=== PATIENT | male | born 1960 | race Two or more races ===

== ENCOUNTER 2017-04-22 18:53 | Inpatient (IN) | payer OTHER ==
[2017-04-22] MEDS ORDERED: MAGNESIUM HYDROXIDE 30ML CUP PO (19:30)
[2017-04-22] MEDS ORDERED: LACTULOSE 30ML CUP PO (19:30)
[2017-04-22] MEDS ORDERED: ACETAMINOPHEN 325 MG TAB PO (19:30)
[2017-04-22] MEDS ORDERED: PENDING SANTYL ORDER FOR WOUND CARE XX (19:30)
[2017-04-22] MEDS ORDERED: BISACODYL 10 MG SUPP PR (19:30)
[2017-04-22] MEDS ORDERED: DEXTROSE 50% 50 ML SYRINGE IV ×2 (20:30)
[2017-04-22] MEDS ORDERED: GLUCAGON 1 MG INJ IM (20:30)
[2017-04-22] MEDS ORDERED: GLUCOSE GEL 15 GRAM TUBE PO ×2 (20:30)
[2017-04-22] MEDS ORDERED: GLUCOSE GEL 15 GRAM TUBE BUCCAL (20:30)
[2017-04-22] MEDS: DOCUSATE SODIUM 100 MG CAP PO (21:00)
[2017-04-22] MEDS: SENNA TAB PO (21:00)
[2017-04-22] MEDS: Insulin NOVOLOG SS MILD Algorithm (SS with meals and bedtime) SC (21:00)
[2017-04-22] MEDS: ATORVASTATIN 80 MG TAB PO (21:14)
[2017-04-22] MEDS: TRIAMCINOLONE ACET 0.1% 15 GM CR TOP (22:00)
[2017-04-23] MEDS: DIAZEPAM 2 MG TAB PO ×2 (01:23→20:26)
[2017-04-23] MEDS: ACCUCHECK AT 2AM (Patients on SS coverage) XX (02:00)
[2017-04-23 02:31] LABS: ADD UMIC NO; UR ASCORBIC ACID NEGATIVE (NEGATIVE); UR BILIRUBIN (Dip) NEGATIVE (NEGATIVE); UR BLOOD (Dip) NEGATIVE (NEGATIVE); UR CLARITY CLEAR (CLEAR); UR COLOR YELLOW (YELLOW); UR GLUCOSE (Dip) NEGATIVE (NEGATIVE); UR KETONES (Dip) NEGATIVE (NEGATIVE); UR LEUKOCYTE ESTERASE (Dip) NEGATIVE Leu/ul (NEGATIVE); UR NITRITE (Dip) NEGATIVE (NEGATIVE); UR SPECIFIC GRAVITY (Dip) 1.023 (1.003-1.030); UR TOTAL PROTEIN (Dip) NEGATIVE (NEGATIVE); UR UROBILINOGEN (Dip) NEGATIVE (NEGATIVE)
[2017-04-23 07:20] LABS: ADD MAN DIFF? NO
[2017-04-23 07:27] LABS: BASOPHILS % 0.3 % (0.0-2.0); EOSINOPHILS # 0.2 10^3/ul (0.0-0.5); EOSINOPHILS % 2.3 % (0.0-7.0); HEMATOCRIT 36.7 % (42.0-52.0); HEMOGLOBIN 12.8 g/dl (14.0-18.0); LYMPHOCYTES # 1.6 10^3/ul (0.8-2.9); LYMPHOCYTES % 20.5 % (15.0-51.0); MEAN CORPUSCULAR HEMOGLOBIN 30.9 pg (29.0-33.0); MEAN CORPUSCULAR HGB CONC 34.9 g/dl (32.0-37.0); MEAN CORPUSCULAR VOLUME 88.6 fl (82.0-101.0); MEAN PLATELET VOLUME 10.1 fl (7.4-10.4); MONOCYTE # 0.7 10^3/ul (0.3-0.9); MONOCYTES % 8.8 % (0.0-11.0); NEUTROPHIL # 5.4 10^3/ul (1.6-7.5); NEUTROPHILS % 67.7 % (39.0-77.0); PLATELET COUNT 246 10^3/UL (140-415); RED BLOOD COUNT 4.14 10^6/ul (4.70-6.10); RED CELL DISTRIBUTION WIDTH 13.2 % (11.5-14.5)
[2017-04-23 07:56] LABS: ALANINE AMINOTRANSFERASE 42 IU/L (13-69); ALBUMIN/GLOBULIN RATIO 1.29; ALKALINE PHOSPHATASE 67 IU/L (42-121); ANION GAP 15 (8-16); ASPARTATE AMINO TRANSFERASE 29 IU/L (15-46); BILIRUBIN,INDIRECT 0.4 mg/dl (0-1.1); BILIRUBIN,TOTAL 0.4 mg/dl (0.2-1.3); BLOOD UREA NITROGEN 16 mg/dl (7-20); CARBON DIOXIDE 25 mmol/L (21-31); CHLORIDE 105 mmol/L (97-110); CREATININE 0.92 mg/dl (0.61-1.24); GLUCOSE 102 mg/dl (70-220); SODIUM 141 mmol/L (135-144); TOTAL PROTEIN 7.1 g/dl (6.1-8.1)
[2017-04-23 07:57] LABS: HEMOGLOBIN A1C 5.2 % (0-5.9)
[2017-04-23] MEDS: Insulin NOVOLOG SS MILD Algorithm (SS with meals and bedtime) SC ×4 (08:24→21:00)
[2017-04-23] MEDS: DOCUSATE SODIUM 100 MG CAP PO ×2 (08:26→20:26)
[2017-04-23] MEDS: ACETAMINOPHEN 325 MG TAB PO (08:26)
[2017-04-23] MEDS: ASPIRIN 81 MG TAB PO (08:26)
[2017-04-23] MEDS: CLOPIDOGREL 75 MG TAB PO (11:47)
[2017-04-23] MEDS: LEVETIRACETAM 500 MG TAB PO ×2 (11:47→20:26)
[2017-04-23] MEDS: ATORVASTATIN 80 MG TAB PO (20:26)
[2017-04-23] MEDS: SENNA TAB PO (20:26)
[2017-04-23] MEDS: TRIAMCINOLONE ACET 0.1% 15 GM CR TOP (20:28)
[2017-04-23] MEDS: DIPHENHYDRAMINE 25 MG CAP PO (23:29)
[2017-04-24] MEDS: ACCUCHECK AT 2AM (Patients on SS coverage) XX (02:00)
[2017-04-24] MEDS: Insulin NOVOLOG SS MILD Algorithm (SS with meals and bedtime) SC ×4 (07:05→20:53)
[2017-04-24] MEDS: SUCRALFATE 1 GM TAB PO ×4 (09:00→20:39)
[2017-04-24] MEDS: CLOPIDOGREL 75 MG TAB PO (09:31)
[2017-04-24] MEDS: ASPIRIN 81 MG TAB PO (09:31)
[2017-04-24] MEDS: FAMOTIDINE 20 MG TAB PO ×2 (09:31→20:39)
[2017-04-24] MEDS: LEVETIRACETAM 500 MG TAB PO ×2 (09:31→20:39)
[2017-04-24] MEDS: DOCUSATE SODIUM 100 MG CAP PO ×2 (09:31→20:38)
[2017-04-24] MEDS: ATORVASTATIN 80 MG TAB PO (20:38)
[2017-04-24] MEDS: hydrOXYzine HCL 25 MG TAB PO (20:46)
[2017-04-24] MEDS: SENNA TAB PO (20:53)
[2017-04-24] MEDS: ACETAMINOPHEN 325 MG TAB PO (21:32)
[2017-04-25] MEDS: ACCUCHECK AT 2AM (Patients on SS coverage) XX (02:00)
[2017-04-25] MEDS: Insulin NOVOLOG SS MILD Algorithm (SS with meals and bedtime) SC (07:05)
[2017-04-25] MEDS: ASPIRIN 81 MG TAB PO (08:49)
[2017-04-25] MEDS: LEVETIRACETAM 500 MG TAB PO ×2 (08:49→20:17)
[2017-04-25] MEDS: DOCUSATE SODIUM 100 MG CAP PO ×2 (08:49→20:17)
[2017-04-25] MEDS: CLOPIDOGREL 75 MG TAB PO (08:49)
[2017-04-25] MEDS: FAMOTIDINE 20 MG TAB PO ×2 (08:49→20:18)
[2017-04-25] MEDS: SUCRALFATE 1 GM TAB PO ×4 (08:49→20:17)
[2017-04-25] MEDS: ACETAMINOPHEN 325 MG TAB PO (18:48)
[2017-04-25] MEDS: SENNA TAB PO (20:17)
[2017-04-25] MEDS: ATORVASTATIN 80 MG TAB PO (20:17)
[2017-04-25] MEDS: hydrOXYzine HCL 25 MG TAB PO (20:21)
[2017-04-26] MEDS: CLOPIDOGREL 75 MG TAB PO (08:41)
[2017-04-26] MEDS: LEVETIRACETAM 500 MG TAB PO ×2 (08:41→20:35)
[2017-04-26] MEDS: SUCRALFATE 1 GM TAB PO ×4 (08:41→20:33)
[2017-04-26] MEDS: DOCUSATE SODIUM 100 MG CAP PO ×2 (08:41→20:33)
[2017-04-26] MEDS: FAMOTIDINE 20 MG TAB PO ×2 (08:41→20:33)
[2017-04-26] MEDS: ASPIRIN 81 MG TAB PO (08:41)
[2017-04-26] MEDS: ATORVASTATIN 80 MG TAB PO (20:33)
[2017-04-26] MEDS: hydrOXYzine HCL 25 MG TAB PO (20:33)
[2017-04-26] MEDS: SENNA TAB PO (20:34)
[2017-04-26] MEDS: ACETAMINOPHEN 325 MG TAB PO (21:20)
[2017-04-26] MEDS: DIAZEPAM 2 MG TAB PO (21:59)
[2017-04-27] MEDS: ASPIRIN 81 MG TAB PO (08:47)
[2017-04-27] MEDS: SUCRALFATE 1 GM TAB PO ×4 (08:47→19:57)
[2017-04-27] MEDS: DOCUSATE SODIUM 100 MG CAP PO ×2 (08:47→19:57)
[2017-04-27] MEDS: CLOPIDOGREL 75 MG TAB PO (08:48)
[2017-04-27] MEDS: FAMOTIDINE 20 MG TAB PO ×2 (08:48→19:58)
[2017-04-27] MEDS: LEVETIRACETAM 250 MG TAB PO (08:49)
[2017-04-27] MEDS: LEVETIRACETAM 500 MG TAB PO (19:57)
[2017-04-27] MEDS: ATORVASTATIN 80 MG TAB PO (19:57)
[2017-04-27] MEDS: SENNA TAB PO (19:59)
[2017-04-27] MEDS: hydrOXYzine HCL 25 MG TAB PO (20:08)
[2017-04-27] MEDS: DIAZEPAM 2 MG TAB PO (23:33)
[2017-04-28] MEDS: ACETAMINOPHEN 325 MG TAB PO ×2 (05:50→20:08)
[2017-04-28] MEDS: FAMOTIDINE 20 MG TAB PO ×2 (09:07→20:08)
[2017-04-28] MEDS: LEVETIRACETAM 250 MG TAB PO (09:07)
[2017-04-28] MEDS: ASPIRIN 81 MG TAB PO (09:07)
[2017-04-28] MEDS: CLOPIDOGREL 75 MG TAB PO (09:07)
[2017-04-28] MEDS: SUCRALFATE 1 GM TAB PO ×5 (09:07→20:07)
[2017-04-28] MEDS: DOCUSATE SODIUM 100 MG CAP PO ×2 (09:07→20:08)
[2017-04-28] MEDS: LEVETIRACETAM 500 MG TAB PO (20:07)
[2017-04-28] MEDS: ATORVASTATIN 80 MG TAB PO (20:08)
[2017-04-28] MEDS: DIAZEPAM 2 MG TAB PO (20:08)
[2017-04-28] MEDS: SENNA TAB PO (20:10)
[2017-04-29] MEDS: ACETAMINOPHEN 325 MG TAB PO ×2 (06:09→16:35)
[2017-04-29] MEDS: CLOPIDOGREL 75 MG TAB PO (09:24)
[2017-04-29] MEDS: ASPIRIN 81 MG TAB PO (09:24)
[2017-04-29] MEDS: SUCRALFATE 1 GM TAB PO ×4 (09:24→22:18)
[2017-04-29] MEDS: FAMOTIDINE 20 MG TAB PO ×2 (09:24→22:19)
[2017-04-29] MEDS: LEVETIRACETAM 250 MG TAB PO (09:24)
[2017-04-29] MEDS: DOCUSATE SODIUM 100 MG CAP PO ×2 (09:25→21:00)
[2017-04-29] MEDS: SENNA TAB PO (21:00)
[2017-04-29] MEDS: ATORVASTATIN 80 MG TAB PO (22:18)
[2017-04-29] MEDS: LEVETIRACETAM 500 MG TAB PO (22:19)
[2017-04-29] MEDS: hydrOXYzine HCL 25 MG TAB PO (22:30)
[2017-04-29] MEDS: DIAZEPAM 2 MG TAB PO (22:30)
[2017-04-30] MEDS: ACETAMINOPHEN 325 MG TAB PO ×3 (03:10→19:41)
[2017-04-30] MEDS: LEVETIRACETAM 250 MG TAB PO (09:39)
[2017-04-30] MEDS: SUCRALFATE 1 GM TAB PO ×4 (09:39→21:10)
[2017-04-30] MEDS: FAMOTIDINE 20 MG TAB PO ×2 (09:39→21:10)
[2017-04-30] MEDS: CLOPIDOGREL 75 MG TAB PO (09:39)
[2017-04-30] MEDS: DOCUSATE SODIUM 100 MG CAP PO ×2 (09:39→21:10)
[2017-04-30] MEDS: ASPIRIN 81 MG TAB PO (09:40)
[2017-04-30] MEDS: ATORVASTATIN 80 MG TAB PO (21:10)
[2017-04-30] MEDS: LEVETIRACETAM 500 MG TAB PO (21:10)
[2017-04-30] MEDS: SENNA TAB PO (21:10)
[2017-04-30] MEDS: ZOLPIDEM 5 MG TAB PO (21:32)
[2017-05-01] MEDS: ZOLPIDEM 5 MG TAB PO ×2 (01:01→21:09)
[2017-05-01] MEDS: ACETAMINOPHEN 325 MG TAB PO (05:14)
[2017-05-01 07:11] LABS: ADD MAN DIFF? NO
[2017-05-01 07:20] LABS: BASOPHILS % 0.3 % (0.0-2.0); EOSINOPHILS # 0.2 10^3/ul (0.0-0.5); HEMATOCRIT 39.5 % (42.0-52.0); HEMOGLOBIN 13.6 g/dl (14.0-18.0); LYMPHOCYTES # 2.1 10^3/ul (0.8-2.9); LYMPHOCYTES % 26.9 % (15.0-51.0); MEAN CORPUSCULAR HEMOGLOBIN 30.9 pg (29.0-33.0); MEAN CORPUSCULAR HGB CONC 34.4 g/dl (32.0-37.0); MEAN CORPUSCULAR VOLUME 89.8 fl (82.0-101.0); MEAN PLATELET VOLUME 9.8 fl (7.4-10.4); MONOCYTE # 0.6 10^3/ul (0.3-0.9); MONOCYTES % 8.1 % (0.0-11.0); NEUTROPHIL # 4.8 10^3/ul (1.6-7.5); NEUTROPHILS % 61.2 % (39.0-77.0); PLATELET COUNT 279 10^3/UL (140-415); RED CELL DISTRIBUTION WIDTH 13.6 % (11.5-14.5)
[2017-05-01 07:20] LABS: WHITE BLOOD COUNT 7.8 10^3/ul (4.8-10.8)
[2017-05-01 07:38] LABS: BLOOD UREA NITROGEN 17 mg/dl (7-20); CALCIUM 8.9 mg/dl (8.4-10.2); CARBON DIOXIDE 26 mmol/L (21-31); CHLORIDE 108 mmol/L (97-110); CREATININE 0.97 mg/dl (0.61-1.24); GLUCOSE 98 mg/dl (70-220); MAGNESIUM 1.9 mg/dl (1.7-2.5); SODIUM 143 mmol/L (135-144)
[2017-05-01 07:39] LABS: ANION GAP 13 (8-16)
[2017-05-01 07:52] LABS: POTASSIUM 4.1 mmol/L (3.5-5.1)
[2017-05-01] MEDS: SUCRALFATE 1 GM TAB PO ×4 (09:11→20:36)
[2017-05-01] MEDS: ASPIRIN 81 MG TAB PO (09:12)
[2017-05-01] MEDS: DOCUSATE SODIUM 100 MG CAP PO ×2 (09:12→20:40)
[2017-05-01] MEDS: FAMOTIDINE 20 MG TAB PO ×2 (09:12→20:36)
[2017-05-01] MEDS: LEVETIRACETAM 250 MG TAB PO (09:12)
[2017-05-01] MEDS: CLOPIDOGREL 75 MG TAB PO (09:12)
[2017-05-01] MEDS: ATORVASTATIN 80 MG TAB PO (20:36)
[2017-05-01] MEDS: SENNA TAB PO (20:40)
[2017-05-01] MEDS: LEVETIRACETAM 500 MG TAB PO (21:00)
[2017-05-01] MEDS: hydrOXYzine HCL 25 MG TAB PO (22:31)
[2017-05-01] MEDS: DIAZEPAM 2 MG TAB PO (22:31)
[2017-05-02] MEDS: SUCRALFATE 1 GM TAB PO ×4 (08:44→20:09)
[2017-05-02] MEDS: LEVETIRACETAM 250 MG TAB PO (08:44)
[2017-05-02] MEDS: ASPIRIN 81 MG TAB PO (08:44)
[2017-05-02] MEDS: DOCUSATE SODIUM 100 MG CAP PO ×2 (08:44→20:12)
[2017-05-02] MEDS: FAMOTIDINE 20 MG TAB PO ×2 (08:44→20:09)
[2017-05-02] MEDS: CLOPIDOGREL 75 MG TAB PO (08:44)
[2017-05-02] MEDS: ACETAMINOPHEN 325 MG TAB PO (12:25)
[2017-05-02] MEDS: ATORVASTATIN 80 MG TAB PO (20:09)
[2017-05-02] MEDS: ZOLPIDEM 5 MG TAB PO (20:10)
[2017-05-02] MEDS: SENNA TAB PO (20:12)
[2017-05-02] MEDS: LEVETIRACETAM 500 MG TAB PO (20:12)
[2017-05-03] MEDS: FAMOTIDINE 20 MG TAB PO ×2 (09:33→20:36)
[2017-05-03] MEDS: LEVETIRACETAM 250 MG TAB PO (09:33)
[2017-05-03] MEDS: CLOPIDOGREL 75 MG TAB PO (09:33)
[2017-05-03] MEDS: SUCRALFATE 1 GM TAB PO ×4 (09:33→20:36)
[2017-05-03] MEDS: ASPIRIN 81 MG TAB PO (09:33)
[2017-05-03] MEDS: DOCUSATE SODIUM 100 MG CAP PO ×2 (09:33→20:40)
[2017-05-03] MEDS: ACETAMINOPHEN 325 MG TAB PO (17:58)
[2017-05-03] MEDS: ATORVASTATIN 80 MG TAB PO (20:36)
[2017-05-03] MEDS: ZOLPIDEM 5 MG TAB PO (20:37)
[2017-05-03] MEDS: LEVETIRACETAM 500 MG TAB PO (20:40)
[2017-05-03] MEDS: SENNA TAB PO (20:41)
[2017-05-03] MEDS: DIAZEPAM 2 MG TAB PO (23:53)
[2017-05-04] MEDS: hydrOXYzine HCL 25 MG TAB PO (00:35)
[2017-05-04] MEDS: DOCUSATE SODIUM 100 MG CAP PO ×2 (09:00→19:59)
[2017-05-04] MEDS: LEVETIRACETAM 250 MG TAB PO (09:00)
[2017-05-04] MEDS: SUCRALFATE 1 GM TAB PO ×4 (09:49→19:58)
[2017-05-04] MEDS: ASPIRIN 81 MG TAB PO (09:49)
[2017-05-04] MEDS: CLOPIDOGREL 75 MG TAB PO (09:49)
[2017-05-04] MEDS: FAMOTIDINE 20 MG TAB PO ×2 (09:49→19:58)
[2017-05-04] MEDS: ACETAMINOPHEN 325 MG TAB PO (16:35)
[2017-05-04] MEDS: ATORVASTATIN 80 MG TAB PO (19:58)
[2017-05-04] MEDS: ZOLPIDEM 5 MG TAB PO (19:59)
[2017-05-04] MEDS: SENNA TAB PO (20:00)
[2017-05-04] MEDS: LEVETIRACETAM 500 MG TAB PO (20:00)
[2017-05-05] MEDS: DOCUSATE SODIUM 100 MG CAP PO ×2 (09:00→20:01)
[2017-05-05] MEDS: LEVETIRACETAM 250 MG TAB PO (09:00)
[2017-05-05] MEDS: FAMOTIDINE 20 MG TAB PO ×2 (11:06→19:59)
[2017-05-05] MEDS: SUCRALFATE 1 GM TAB PO ×4 (11:06→20:01)
[2017-05-05] MEDS: CLOPIDOGREL 75 MG TAB PO (11:07)
[2017-05-05] MEDS: ASPIRIN 81 MG TAB PO (11:09)
[2017-05-05] MEDS: CALCIUM CARBONATE 500 MG CHEW TAB PO (12:45)
[2017-05-05] MEDS: ACETAMINOPHEN 325 MG TAB PO (16:51)
[2017-05-05] MEDS: ATORVASTATIN 80 MG TAB PO (19:59)
[2017-05-05] MEDS: SENNA TAB PO (20:01)
[2017-05-05] MEDS: LEVETIRACETAM 500 MG TAB PO (20:01)
[2017-05-06] MEDS: ZOLPIDEM 5 MG TAB PO ×2 (02:33→21:03)
[2017-05-06] MEDS: DOCUSATE SODIUM 100 MG CAP PO ×2 (10:14→21:00)
[2017-05-06] MEDS: FAMOTIDINE 20 MG TAB PO ×2 (10:17→20:57)
[2017-05-06] MEDS: LEVETIRACETAM 250 MG TAB PO (10:18)
[2017-05-06] MEDS: SUCRALFATE 1 GM TAB PO ×4 (10:18→20:56)
[2017-05-06] MEDS: CLOPIDOGREL 75 MG TAB PO (10:18)
[2017-05-06] MEDS: ASPIRIN 81 MG TAB PO (10:18)
[2017-05-06] MEDS: CALCIUM CARBONATE 500 MG CHEW TAB PO (12:08)
[2017-05-06] MEDS: ATORVASTATIN 80 MG TAB PO (20:56)
[2017-05-06] MEDS: SENNA TAB PO (21:00)
[2017-05-06] MEDS: LEVETIRACETAM 500 MG TAB PO (21:00)
[2017-05-06] MEDS: ACETAMINOPHEN 325 MG TAB PO (21:03)
[2017-05-07] MEDS: LEVETIRACETAM 250 MG TAB PO (09:00)
[2017-05-07] MEDS: CLOPIDOGREL 75 MG TAB PO (09:32)
[2017-05-07] MEDS: ASPIRIN 81 MG TAB PO (09:32)
[2017-05-07] MEDS: FAMOTIDINE 20 MG TAB PO ×2 (09:32→21:08)
[2017-05-07] MEDS: DOCUSATE SODIUM 100 MG CAP PO ×2 (09:32→21:00)
[2017-05-07] MEDS: SUCRALFATE 1 GM TAB PO ×4 (09:32→21:08)
[2017-05-07] MEDS: SENNA TAB PO (21:00)
[2017-05-07] MEDS: LEVETIRACETAM 500 MG TAB PO (21:08)
[2017-05-07] MEDS: ZOLPIDEM 5 MG TAB PO (21:08)
[2017-05-07] MEDS: ATORVASTATIN 80 MG TAB PO (21:08)
[2017-05-07] MEDS: ACETAMINOPHEN 325 MG TAB PO (21:08)
[2017-05-08] MEDS: DOCUSATE SODIUM 100 MG CAP PO ×2 (09:00→21:00)
[2017-05-08] MEDS: SUCRALFATE 1 GM TAB PO ×4 (09:07→21:43)
[2017-05-08] MEDS: FAMOTIDINE 20 MG TAB PO ×2 (09:07→21:43)
[2017-05-08] MEDS: ASPIRIN 81 MG TAB PO (09:07)
[2017-05-08] MEDS: CLOPIDOGREL 75 MG TAB PO (09:07)
[2017-05-08] MEDS: ACETAMINOPHEN 325 MG TAB PO (10:38)
[2017-05-08] MEDS: SENNA TAB PO (21:00)
[2017-05-08] MEDS: LEVETIRACETAM 500 MG TAB PO (21:43)
[2017-05-08] MEDS: ATORVASTATIN 80 MG TAB PO (21:43)
[2017-05-09] MEDS: ZOLPIDEM 5 MG TAB PO ×2 (00:29→20:32)
[2017-05-09] MEDS: DOCUSATE SODIUM 100 MG CAP PO ×2 (09:17→20:36)
[2017-05-09] MEDS: CLOPIDOGREL 75 MG TAB PO (09:17)
[2017-05-09] MEDS: ASPIRIN 81 MG TAB PO (09:17)
[2017-05-09] MEDS: SUCRALFATE 1 GM TAB PO ×4 (09:17→20:31)
[2017-05-09] MEDS: FAMOTIDINE 20 MG TAB PO ×2 (09:17→20:31)
[2017-05-09] MEDS: LEVETIRACETAM 500 MG TAB PO (20:30)
[2017-05-09] MEDS: ATORVASTATIN 80 MG TAB PO (20:31)
[2017-05-09] MEDS: SENNA TAB PO (20:36)
[2017-05-10] MEDS: SUCRALFATE 1 GM TAB PO ×4 (08:39→20:50)
[2017-05-10] MEDS: FAMOTIDINE 20 MG TAB PO ×2 (08:40→20:50)
[2017-05-10] MEDS: ASPIRIN 81 MG TAB PO (08:40)
[2017-05-10] MEDS: DOCUSATE SODIUM 100 MG CAP PO ×2 (08:40→20:53)
[2017-05-10] MEDS: CLOPIDOGREL 75 MG TAB PO (08:40)
[2017-05-10] MEDS: ACETAMINOPHEN 325 MG TAB PO (13:18)
[2017-05-10] MEDS: ATORVASTATIN 80 MG TAB PO (20:50)
[2017-05-10] MEDS: LEVETIRACETAM 500 MG TAB PO (20:50)
[2017-05-10] MEDS: ZOLPIDEM 5 MG TAB PO (20:51)
[2017-05-10] MEDS: SENNA TAB PO (20:53)
[2017-05-11] MEDS: FAMOTIDINE 20 MG TAB PO ×2 (08:16→20:14)
[2017-05-11] MEDS: CLOPIDOGREL 75 MG TAB PO (08:16)
[2017-05-11] MEDS: SUCRALFATE 1 GM TAB PO ×4 (08:16→20:14)
[2017-05-11] MEDS: ASPIRIN 81 MG TAB PO (08:16)
[2017-05-11] MEDS: DOCUSATE SODIUM 100 MG CAP PO ×2 (08:17→20:17)
[2017-05-11] MEDS: ATORVASTATIN 80 MG TAB PO (20:14)
[2017-05-11] MEDS: LEVETIRACETAM 500 MG TAB PO (20:14)
[2017-05-11] MEDS: ZOLPIDEM 5 MG TAB PO (20:15)
[2017-05-11] MEDS: SENNA TAB PO (20:17)
[2017-05-12] MEDS: DOCUSATE SODIUM 100 MG CAP PO (09:24)
[2017-05-12] MEDS: FAMOTIDINE 20 MG TAB PO (09:24)
[2017-05-12] MEDS: SUCRALFATE 1 GM TAB PO (09:24)
[2017-05-12] MEDS: ASPIRIN 81 MG TAB PO (09:24)
[2017-05-12] MEDS: CLOPIDOGREL 75 MG TAB PO (09:24)
== END 2017-05-12 11:30 | DRG 57 ==
LOC: VRC 18:53
PROVIDERS: Physical Medicine & Rehabilitation
DX: I69.352 Hemiplegia and hemiparesis following cerebral infarction affecting left dominant side (principal); I65.21 Occlusion and stenosis of right carotid artery; G40.909 Epilepsy, unspecified, not intractable, without status epilepticus; E78.5 Hyperlipidemia, unspecified; D64.9 Anemia, unspecified; R73.9 Hyperglycemia, unspecified; F41.9 Anxiety disorder, unspecified; L29.9 Pruritus, unspecified; K29.70 Gastritis, unspecified, without bleeding; F06.31 Mood disorder due to known physiological condition with depressive features
CPT/HCPCS: 80048; 80053; 81003; 82962; 83036; 83735; 84100; 85025; 87081; 87086; 92507; 92523; 97110; 97112; 97116; 97163; 97167; 97530; 97535; 97542